=== PATIENT | female | born 1960 | race Caucasian/White ===

== ENCOUNTER 2020-03-04 05:04 | Emergency (ER) | payer BC, OTHER ==
[~2020-03-04] VITALS: Ht 162.6 cm; Wt 89.4 kg
[~2020-03-04 05:04] MED LIST: GLUCOPHAGE XR500 MG PO; NAPROSYN375 MG PO; PEPCID20 MG PO; PRILOSEC20 MG PO
[2020-03-04] MEDS ORDERED: ROSUVASTATIN CA10 MG PO (06:12)
[2020-03-04] MEDS ORDERED: OZEMPIC0.25 MG/0. SUB-Q (06:13)
[2020-03-04] MEDS ORDERED: JANUVIA100 MG PO (06:13)
[2020-03-04] MEDS ORDERED: ESTRACE1 MG PO (06:13)
[2020-03-04] MEDS ORDERED: MEDROXYPROGEST2.5 MG PO (06:14)
[2020-03-04] MEDS ORDERED: DICYCLOMINE HCL20 MG PO (07:41)
--- NOTE | 2020-03-05 13:10 | EKG ---
[facility] [address] [facility] [place], [place] [address] Signed Normal sinus rhythm with sinus arrhythmia Low voltage QRS Possible Inferior infarct , age undetermined Abnormal ECG No previous ECGs available Confirmed by REBEKAH VELA DO ([id number]) on 03/05/2020 1:10:34 PM Electronically Signed By: REBEKAH VELA DO 03/05/20 1310 PATIENT NAME: MARILU NAIKXIOMY YEAGEREN Electrocardiogram DATE OF : 62 PHYSICIAN: REBEKAH VELA DO REPORT #: [id number] REPORT IS CONFIDENTIAL AND NOT TO BE RELEASED WITHOUT AUTHORIZATION
== END 2020-03-04 08:15 | disposition home or self-care (01) ==
LOC: ED 05:04
DX: K52.9 Noninfective gastroenteritis and colitis, unspecified (principal); E11.9 Type 2 diabetes mellitus without complications; Z87.891 Personal history of nicotine dependence; Z88.8 Allergy status to other drugs, medicaments and biological substances; Z79.899 Other long term (current) drug therapy; Z79.84 Long term (current) use of oral hypoglycemic drugs
CPT/HCPCS: 71045; 74177; 80053; 81001; 83690; 83735; 84484; 85025; 93005; 93010; 99284-25; J0500; J2405; J7121; Q9967

== ENCOUNTER 2020-03-09 10:53 | Day surgery (SDC) | payer BC, OTHER ==
--- NOTE | ~2020-03-09 | OR ---
[facility] [address] [place], [place] [address] Draft DATE OF OPERATION: 03/09/2020 SURGEON: Lida Hwang MD PREOPERATIVE DIAGNOSES: 1. Longstanding upper abdominal pain, known history of cholecystectomy, known history of reflux disease. 2. Abdominal bloating and bowel habit changes. POSTOPERATIVE DIAGNOSES: 1. Mild distal esophagitis without sign of hiatal hernia, benign-appearing gastric polyps. 2. Diverticulosis (pandiverticulosis) without evidence of polyps or colitis. PROCEDURES: 1. Esophagogastroduodenoscopy with biopsy. 2. Total colonoscopy to cecum with attempt of intubation of ileum. ANESTHESIA: Intravenous sedation, fentanyl 150 mcg, Versed 8 mg. INDICATION: This 59-year-old white woman is a patient of Dr. Marley and known to me from the past. She last underwent endoscopic evaluation in 2012. She is known to have diverticulosis and clinical evidence of reflux disease in the past. She has had several weeks of increasing abdominal bloating and pain. She visited the ER in the recent past, underwent a CT scan of the abdomen showed diverticulosis with no sign of diverticulitis and no clear etiology for her pain. She also has pain in the subcostal area, epigastric area, radiating to the back. She does not have significant dysphagia. She is admitted at this time to undergo upper endoscopy and colonoscopy to better characterize the problem; understand the risks of bleeding, infection, and perforation. FINDINGS: Upper endoscopy showed mild distal esophagitis. No Solomon's epithelium. No obvious hiatal hernia. There were few small gastric polyps of little consequence. The duodenum was normal. Notably, there was felinization of the midesophagus. Extent to which this was truly pathologic is uncertain. On colonoscopy, the prep was excellent. Complete colonoscopy was undertaken to the cecum without question. The appendiceal orifice was normal. A slit-like ileocecal PATIENT NAME: EVELYN NAIK OPERATIVE REPORT DATE OF : 62 REPORT #: [id number] PHYSICIAN: LIDA HWANG MD PCP: ARLEEN MARLEY MD REPORT IS CONFIDENTIAL AND NOT TO BE RELEASED WITHOUT AUTHORIZATION [facility] [address] [place], [place] [address] Draft valve was noted and despite multiple and lengthy attempts to intubate the ileum, it simply could not be accomplished at this point. The remaining colon was notable for diverticulosis extending from the right colon most dominantly in the sigmoid and left colon. There was no sign of polyps or colitis. The rectum was otherwise, normal. She also had a small skin lesion of the perianal area, which appeared benign clinically. DESCRIPTION OF PROCEDURE: The patient was brought to the endoscopy suite and given topical lidocaine anesthetic, placed in lateral decubitus position, given intravenous sedation to the point of slurred speech and nystagmus with full cardiopulmonary monitoring. A bite block was placed. An Olympus video upper endoscope was passed in the hypopharynx. The vocal cords appeared normal. Scope was advanced to the esophagus without problem. Throughout its length, it looked reasonably normal though there was mild inflammation of the distal esophagus. There is certainly no stricture, no Solomon's epithelium. Scope was passed to the stomach, which was insufflated with air. Rugal folds were normal. There was no bile in the stomach. Pylorus was normal. Scope was passed through the pylorus into the duodenal, which was normal. Biopsies were taken of the distal duodenum to assess for celiac disease. The scope was withdrawn. A biopsy was then taken of the antrum for both SHEILA and pathologic testing. Retroflexed view showed an intact flap valve. There was no hiatal hernia. Scope was withdrawn and biopsies then taken of the distal esophagus and subsequently in the mid esophagus. Close inspection of the midesophagus did show a felinization appearance, not specifically typical of the eosinophilic esophagitis. Biopsies were taken of the midesophagus to assess for this of course. Careful withdrawal of scope showed no other abnormalities. Plans were then made for colonoscopy. Additional sedation was given and digital rectal examination performed. There was a small subcutaneous nodule outside the anal area, which the patient was aware of, did not have malignant features nor signs of inflammation. The Olympus video colonoscope was passed in the rectum and manipulated throughout the colon, noting multiple diverticula of the sigmoid and left colon. Scope was ultimately advanced to the cecum. Ileocecal valve and appendiceal orifice were normal. Multiple attempts were made to intubate the terminal ileum, but its tight slit-like appearance precluded entry of the scope into the ileum. The scope was manipulated to once again visualize the cecum and biopsies were taken of the cecum. Careful withdrawal of scope showed only scattered diverticula in the right transverse colon, but more extensive diverticula of the left colon. Biopsies were taken of the left colon, ultimately the rectum. Retroflexed view was reasonably normal other than some internal hemorrhoidal change. The scope was removed. The patient was taken to the recovery room in good condition. CONCLUDING DIAGNOSIS: Uncertain etiology of current symptoms. This may represent interval bowel syndrome. PATIENT NAME: EVELYN NAIK OPERATIVE REPORT DATE OF : 62 REPORT #: [id number] PHYSICIAN: LIDA HWANG MD PCP: ARLEEN MARLEY MD REPORT IS CONFIDENTIAL AND NOT TO BE RELEASED WITHOUT AUTHORIZATION [facility] [address] [place], [place] [address] Draft Consideration will be made for re-initiating PPI medication as it does not appear she is taken at this point or Carafate 1 g p.o. q.i.d. on empty stomach. Additionally, initiation of a low FODMAP diet may be of benefit to her. We will see her back in a few weeks and review her progress in the meantime, she will let us know if things worsen. MD MESSI Dow/ODETTE /[id number] Copies: ~ PATIENT NAME: EVELYN NAIK OPERATIVE REPORT DATE OF : 62 REPORT #: [id number] PHYSICIAN: LIDA HWANG MD PCP: ARLEEN MARLEY MD REPORT IS CONFIDENTIAL AND NOT TO BE RELEASED WITHOUT AUTHORIZATION
[~2020-03-09 10:53] MED LIST changes: +DICYCLOMINE HCL20 MG PO; +ESTRACE1 MG PO; +JANUVIA100 MG PO; +MEDROXYPROGEST2.5 MG PO; +OZEMPIC0.25 MG/0. SUB-Q; +ROSUVASTATIN CA10 MG PO
--- NOTE | 2020-03-09 11:00 | NUR ---
PT ARRIVES TO DAY SURGERY WALKING INDEPENDENTLY ACCOMPANIED BY AND PLACED IN RM 9. WARM BLANKET PROVIDED.
--- NOTE | 2020-03-09 11:30 | NUR ---
PRE PROCEDURE CHECK IN COMPLETE. PT RESTING IN LOCKED AND LOWERED BED, CALL LIGHT WITHIN REACH, AT THE BEDSIDE.
--- NOTE | 2020-03-09 13:43 | NUR ---
03/09/20 1343 Leela Salgado 1335- PT ARRIVES TO PACU AROUSABLE TO VOICE. PT FALLS TO SLEEP WHEN NOT BEING TALKED TO. RESP EVEN AND UNLABORED. OXYGEN SAT HIGH 90'S TO 100% ON 2L VIA NC. 1342- OXYGEN TITRATED OFF. PT REPORTS HER ABD IS CRAMPING. PT ENCOURAGED TO PASS FLATUS TO HELP WITH THIS.
--- NOTE | 2020-03-13 11:22 | PATH ---
[facility] [address] [place], [place] [address] Signed SPECIMEN(S): A DUODENAL BIOPSY SPECIMEN(S): B ANTRUM/PYLORUS SPECIMEN(S): C LOWER ESOPHAGUS SPECIMEN(S): D MIDDLE ESOPHAGUS SPECIMEN(S): E CECUM SPECIMEN(S): F DESCENDING SPECIMEN(S): G RECTUM SPECIMEN SOURCE: A. DUODENAL BIOPSY B. ANTRUM/PYLORUS C. LOWER ESOPHAGUS D. MIDDLE ESOPHAGUS E. CECUM F. DESCENDING G. RECTUM CLINICAL HISTORY: GERD, LUQ pain, dysphagia. Post-op: Diverticulosis. Esophagogastroduodenoscopy, colonoscopy with possible biopsy. MICROSCOPIC DESCRIPTION: Histologic sections of all submitted blocks are examined by light microscopy. These findings, together with the gross examination, support the pathologic diagnosis. FINAL PATHOLOGIC DIAGNOSIS: A. Duodenum, biopsy: - Duodenal mucosa with no histopathologic abnormality. - Negative for increased intraepithelial lymphocytes. - Negative for dysplasia or malignancy. B. Stomach, antrum/pylorus, biopsy: - Antral mucosa with reactive gastropathy. - Negative for Helicobacter organisms on HE stain. - Negative for dysplasia or malignancy. C. Esophagus, lower, biopsy: - Squamocolumnar junctional mucosa with increased intraepithelial eosinophils, chronic inflammation, and reactive changes. - Negative for intestinal metaplasia, dysplasia, or malignancy. D. Esophagus, middle, biopsy: - Squamous mucosa with borderline increased intraepithelial eosinophils, chronic inflammation, and reactive changes. PATIENT NAME: MELISSA NAIK PATHOLOGY DATE OF : 62 REPORT #: [id number] PHYSICIAN: ALLIE PATHOLOGY PCP: ARLEEN BANKS MD REPORT IS CONFIDENTIAL AND NOT TO BE RELEASED WITHOUT AUTHORIZATION [facility] [address] [place], [place] [address] Signed - Negative for intestinal metaplasia, dysplasia, or malignancy. - See comment. E. Colon, cecum, biopsy: - Focal mild active colitis. - Negative for dysplasia or malignancy. F. Colon, descending, biopsy: - Colonic mucosa with no histopathologic abnormality. - Negative for active, chronic, or microscopic colitis. - Negative for dysplasia or malignancy. G. Rectum, biopsy: - Rectal mucosa with no histopathologic abnormality. - Negative for active or chronic proctitis. - Negative for dysplasia or malignancy. COMMENT: Regarding specimens C and D: Sections demonstrate squamous mucosa with intraepithelial eosinophils which are increased in the lower esophagus (25 seen per high power field) and borderline increased in the middle esophagus (up to 16 seen per high power field). Increased intraepithelial eosinophils can be seen in the setting of reflux esophagitis and in the correct clinical context, eosinophilic esophagitis. Correlation with endoscopic findings is necessary. Regarding specimen E: The finding of focal active colitis is nonspecific and the differential diagnosis includes medication (nonsteroidal anti-inflammatory drug, NSAID) induced injury, bowel preparation artifact, and infection. There are no signs of chronic colitis, granuomata, or viral cytopathic changes, and infectious organisms are not seen on HE stain. NAL:cml:C2NR GROSS DESCRIPTION: Seven specimens are received in seven containers, labeled "Melissa Naik." A. The specimen, labeled "Melissa Naik, #1," and designated on the requisition "duodenal biopsy," is received in formalin and consists of two michael soft tissue fragments that measure 0.3 and 0.3 cm in greatest dimension. The specimen is entirely submitted in cassette (A1). B. The specimen, labeled "Melissa Naik, #2 antrum/pylorus," is received in formalin and consists of two michael soft tissue fragments that measure 0.2 and 0.4 cm in greatest dimension. The specimen is entirely submitted in cassette (B1). PATIENT NAME: MELISSA NAIK PATHOLOGY DATE OF : 62 REPORT #: [id number] PHYSICIAN: ALLIE STOCK PCP: ARLEEN BANKS MD REPORT IS CONFIDENTIAL AND NOT TO BE RELEASED WITHOUT AUTHORIZATION [facility] [address] [place], [place] [address] Signed C. The specimen, labeled "Melissa Naik, #3," and designated on the requisition "lower esophagus," is received in formalin and consists of four white-michael soft tissue fragments that measure 0.1-0.4 cm in greatest dimension. The specimen is entirely submitted in cassette (C1). D. The specimen, labeled "Melissa Naik, #4," and designated on the requisition "middle esophagus," is received in formalin and consists of seven michael soft tissue fragments that measure 0.2-0.4 cm in greatest dimension. The specimen is entirely submitted in cassette (D1). E. The specimen, labeled "Melissa Naik, #5," and designated on the requisition "cecum," is received in formalin and consists of two michael soft tissue fragments that measure 0.3 and 0.3 cm in greatest dimension. The specimen is entirely submitted in cassette (E1). F. The specimen, labeled "Melissa Naik, #6," and designated on the requisition "descending," is received in formalin and consists of one michael soft tissue fragment that measures 0.5 cm in greatest dimension. The specimen is entirely submitted in cassette (F1). G. The specimen, labeled "Melissa Naik, #7," and designated on the requisition "rectum," is received in formalin and consists of one michael soft tissue fragment that measures 0.4 cm in greatest dimension. The specimen is entirely submitted in cassette (G1). FB (under the direct supervision of a pathologist) The Gross Description was prepared using a voice recognition system. The report was reviewed for accuracy; however, sound-alike word errors, addition and/or deletions may occur. If there is any question about this report, please contact Client Services. PERFORMING LABORATORY: The technical component was [place] [address] ([address] Judge: Yulisa Prado MD; CLIA# [id number]). [facility], [address] [place] [address] (CLIA# [id number]). Diagnostician: Beti Cabrera MD Pathologist Electronically Signed 03/13/2020 Copies: PATIENT NAME: MELISSA NAIK PATHOLOGY DATE OF : 62 REPORT #: [id number] PHYSICIAN: INC[facility] PATH[facility] PCP: ARLEEN BANKS MD REPORT IS CONFIDENTIAL AND NOT TO BE RELEASED WITHOUT AUTHORIZATION [address] [place] [address] Signed ~ PATIENT NAME: MELISSA NAIK PATHOLOGY DATE OF : 62 REPORT #: [id number] PHYSICIAN: ALLIE PATHOLOGY PCP: ARLEEN BANKS MD REPORT IS CONFIDENTIAL AND NOT TO BE RELEASED WITHOUT AUTHORIZATION
== END 2020-03-09 14:30 | disposition home or self-care (01) ==
LOC: OPS 10:53 → DS 10:53 → OPS 12:00 → DS 12:00 → OPS 14:30 → DS 03-13 12:00
PROVIDERS: ATTEND Surgery
PROC: 0DB28ZX Excision of Middle Esophagus, Via Natural or Artificial Opening Endoscopic, Diagnostic (ICD-10-PCS; 2020-03-09)
PROC: 0DB38ZX Excision of Lower Esophagus, Via Natural or Artificial Opening Endoscopic, Diagnostic (ICD-10-PCS; 2020-03-09)
PROC: 0DBH8ZX Excision of Cecum, Via Natural or Artificial Opening Endoscopic, Diagnostic (ICD-10-PCS; 2020-03-09)
PROC: 0DBP8ZX Excision of Rectum, Via Natural or Artificial Opening Endoscopic, Diagnostic (ICD-10-PCS; 2020-03-09)
PROC: 0DBM8ZX Excision of Descending Colon, Via Natural or Artificial Opening Endoscopic, Diagnostic (ICD-10-PCS; 2020-03-09)
PROC: 0DB98ZX Excision of Duodenum, Via Natural or Artificial Opening Endoscopic, Diagnostic (ICD-10-PCS; principal; 2020-03-09 12:00)
PROC: 0DB78ZX Excision of Stomach, Pylorus, Via Natural or Artificial Opening Endoscopic, Diagnostic (ICD-10-PCS; 2020-03-09 12:00)
DX: K52.9 Noninfective gastroenteritis and colitis, unspecified (principal); K57.30 Diverticulosis of large intestine without perforation or abscess without bleeding; K21.00 Gastro-esophageal reflux disease with esophagitis, without bleeding; K31.9 Disease of stomach and duodenum, unspecified; Z88.8 Allergy status to other drugs, medicaments and biological substances; Z79.899 Other long term (current) drug therapy; Z79.84 Long term (current) use of oral hypoglycemic drugs; Z90.49 Acquired absence of other specified parts of digestive tract
CPT/HCPCS: 99153; G0500; J2250; J3010; J7121

== ENCOUNTER 2024-10-17 09:48 | Emergency (ER) | payer BC ==
[~2024-10-17] VITALS: Ht 162.6 cm; Wt 67.5 kg
[2024-10-17] MEDS ORDERED: PROGESTERONE100 MG PO (10:06)
[2024-10-17] MEDS ORDERED: MOUNJARO10 MG/0.5 SUB-Q (10:07)
[2024-10-17] MEDS ORDERED: SODIUM CHLORIDE 0.9% 500 ML IV ONE (10:15)
[2024-10-17 10:16] LABS: BASOPHILS 0.4 % (0.1-1.2); EOSINOPHILS 2.2 % (0.7-5.8); LYMPHOCYTES 35.4 % (19.3-51.7); MCH 30.1 PG (25.6-32.2); MCHC 33.9 g/dL (32.2-35.5); MCV 88.8 fL (79.4-94.8); MONOCYTES 12.6 % (4.7-12.5); NEUTROPHILS 49.1 % (34.0-71.1); RBC 5.02 M/uL (3.93-5.22)
[2024-10-17 10:32] LABS: BLOOD/HGB, URINE NEGATIVE (Negative); KETONE, URINE SMALL (Negative); LEUK ESTERASE, URINE NEGATIVE (negative); NITRITE, URINE NEGATIVE (negative)
[2024-10-17 10:33] LABS: ALT (SGPT) 24.0 U/L (14-59); AST (SGOT) 15.0 U/L (15-37); GLOMERULAR FILTRATION RATE,EST 100.0 mL/min (>60); PROTEIN, TOTAL 7.2 g/dL (6.4-8.2); UREA NITROGEN 8.0 mg/dL (7-18)
[2024-10-17] MEDS ORDERED: ONDANSETRON ODT4 MG PO (11:27)
[2024-10-17] MEDS ORDERED: AZITHROMYCIN500 MG PO (11:27)
[2024-10-17] MEDS ORDERED: ONDANSETRON 4 MG TAB ODT SL ONE (11:30)
[2024-10-17] MEDS ORDERED: AZITHROMYCIN 250 MG TAB PO ONE (11:30)
[2024-10-17 11:39] VITALS: BP 113/71
== END 2024-10-17 11:40 | disposition home or self-care (01) ==
LOC: ED 09:48
PROVIDERS: Emergency Medicine
DX: R19.7 Diarrhea, unspecified (principal); E11.9 Type 2 diabetes mellitus without complications; Z79.899 Other long term (current) drug therapy; Z88.8 Allergy status to other drugs, medicaments and biological substances; Z87.891 Personal history of nicotine dependence
CPT/HCPCS: 36415; 80053; 81003; 83735; 85025; 87045; 87046; 87177; 96374; 99284-25; A9270; J2405; J7040